=== PATIENT | male | born 1950 | race Two or more races ===

== ENCOUNTER 2022-10-18 06:00 | Day surgery (SDC) | payer OTHER ==
[~2022-10-18] VITALS: Ht 152.4 cm; Wt 72.6 kg
[2022-10-18] MEDS ORDERED: OXYC1TAB9 PO (11:25)
== END 2022-10-18 17:20 | disposition home or self-care (01) ==
LOC: CIR.AMB 06:00
PROVIDERS: ATTEND Surgery
DX: K60.3 Anal fistula (principal); Z88.6 Allergy status to analgesic agent; K62.89 Other specified diseases of anus and rectum; I10 Essential (primary) hypertension

== ENCOUNTER → 2023-03-07 | Day surgery (SDC) | payer OTHER ==
[~2023-03-07] VITALS: Ht 165.1 cm; Wt 77.1 kg
[~2023-03-07] MED LIST: ATORVASTATIN CA20 MG PO; DOXAZOSIN MESYLA4 MG PO; LISINO PO; OXYC1TAB9 PO
== END | disposition home or self-care (01) ==
LOC: ADM 03-04 10:45 → CIR.AMB 06:27
PROVIDERS: ATTEND Surgery
DX: K60.3 Anal fistula (principal); Z88.6 Allergy status to analgesic agent; Z20.822 Contact with and (suspected) exposure to COVID-19; K62.89 Other specified diseases of anus and rectum; I10 Essential (primary) hypertension